=== PATIENT | male | born 1970 | race African-American/Black ===

== ENCOUNTER 2025-01-29 18:49 | Emergency (ER) | payer SELFPAY ==
[2025-01-29] MEDS ORDERED: Ketorolac Tromethamine 30 MG (1 mL) VIAL ONE (19:10)
[2025-01-29] MEDS ORDERED: Acetaminophen 325 MG TAB ONE (19:10)
[2025-01-29] MEDS ORDERED: Dexamethasone 10 MG/ML VIAL ONE (19:11)
== END 2025-01-29 20:21 | disposition home or self-care (01) ==
LOC: ERS 18:49
DX: J02.9 Acute pharyngitis, unspecified (principal); Z87.891 Personal history of nicotine dependence
CPT/HCPCS: 87081; 87428; 87430; 96372; 99283; J1100; J1885

== ENCOUNTER 2025-01-31 03:42 | Emergency (ER) | payer SELFPAY ==
[2025-01-31] MEDS ORDERED: Dexamethasone 10 MG/ML VIAL ONE (04:22)
== END 2025-01-31 05:02 | disposition home or self-care (01) ==
LOC: ERS 03:42
DX: J02.9 Acute pharyngitis, unspecified (principal); Z87.891 Personal history of nicotine dependence
CPT/HCPCS: 87081; 87426; 87430; 96372; 99283; J1100